=== PATIENT | female | born 1975 | race Hispanic/Latino ===

== ENCOUNTER 2018-12-04 10:48 | Emergency (ER) | payer OTHER ==
[2018-12-04 10:48] VITALS: BMI 26.4
[2018-12-04 10:52] VITALS: RESP 18; TEMP 97.9
[2018-12-04] MEDS ORDERED: methylPREDNISolone 125 MG in Sodium Chloride 0.9% 50 ML IV STA (11:37)
--- NOTE | 2018-12-04 11:39 | ED PDOC ---
HPI: General Adult Time Seen by Provider: 12/04/18 11:38 Chief Complaint (Nursing): Abnormal Skin Integrity Chief Complaint (Provider): rash History Per: Patient (43 y/o female here with rash that started last night at work. Initially noted on arms and subsequently on legs/back. Denies any new foods/medications. Denies any new mattress or sleeping over someone else's house. Did not try any medication as she is allergic to benadryl.) Past Medical History Reviewed: Historical Data, Nursing Documentation, Vital Signs Vital Signs: Last Vital Signs Temp 97.9 F 12/04/18 10:51 Pulse 82 12/04/18 10:51 Resp 18 12/04/18 10:51 BP 156/92 H 12/04/18 10:51 Pulse Ox 100 12/04/18 10:51 - Medical History PMH: Arthritis (rheumatoid), Rheumatoid Arthritis, Seizures (epilepsy) Denies: Depression, Chronic Kidney Disease - Surgical History Surgical History: Cholecystectomy - Family History Family History: States: No Known Family Hx - Immunization History Hx Tetanus Toxoid Vaccination: No Hx Influenza Vaccination: No Hx Pneumococcal Vaccination: No - Home Medications Home Medications: Ambulatory Orders Medication Instructions Recorded Topiramate [Topamax] 200 mg PO BID 07/19/15 Cyclobenzaprine [Cyclobenzaprine 5 mg PO Q8 #15 tab 12/09/17 HCl] Naproxen [Naprosyn] 500 mg PO BID #14 tab 12/09/17 Famotidine [Pepcid] 20 mg PO BID #10 tab 12/04/18 RX: predniSONE [predniSONE Tab] 3 tab PO DAILY #12 tab 12/04/18 - Allergies Allergies/Adverse Reactions: Allergies Allergy/AdvReac Type Severity Reaction Status Date / Time diphenhydramine Allergy ANAPHYLAXIS Verified 10/10/17 20:28 Sulfa (Sulfonamide Allergy ANAPHYLAXIS Verified 10/10/17 20:28 Antibiotics) Review of Systems ROS Statement: Except As Marked, All Systems Reviewed And Found Negative Physical Exam - Reviewed Nursing Documentation Reviewed: Yes Vital Signs Reviewed: Yes - Physical Exam Appears: Positive for: Well, Non-toxic, No Acute Distress Head Exam: Positive for: ATRAUMATIC, NORMAL INSPECTION, NORMOCEPHALIC Skin: Positive for: Normal Color, Warm, Rash Eye Exam: Positive for: EOMI, Normal appearance, PERRL ENT: Positive for: Normal ENT Inspection Neck: Positive for: Normal, Painless ROM Cardiovascular/Chest: Positive for: Regular Rate, Rhythm Respiratory: Positive for: CNT, Normal Breath Sounds Gastrointestinal/Abdominal: Positive for: Normal Exam, Soft Back: Positive for: Normal Inspection Extremity: Positive for: Normal ROM Neurologic/Psych: Positive for: Alert, Oriented - Laboratory Results Result Diagrams: 12/04/18 12:30 12/04/18 12:30 - ECG O2 Sat by Pulse Oximetry: 100 - Progress ED Course And Treament: solumedrol 125 mg iv x 1 dose pepcid 20 mg iv x 1 dose ns 1 liter 500 ml per hour patient feels improved but notes persistent rash on legs/arms. Advised f/u with dermatology and pmd. Disposition - Clinical Impression Clinical Impression: Rash and nonspecific skin eruption - Patient ED Disposition Is Patient to be Admitted: No - Disposition Referrals: Cuco Paz MD [Staff Provider] - Disposition: Routine/Home Disposition Time: 14:05 Condition: FAIR Additional Instructions: DR. FRANK[facility] [phone] Prescriptions: Famotidine [Pepcid] 20 mg PO BID #10 tab RX: predniSONE [predniSONE Tab] 3 tab PO DAILY #12 tab Instructions: Skin Rash (DC)
[2018-12-04] MEDS: Sodium Chloride 0.9% 1,000 ML IV STA (12:27)
[2018-12-04 12:55] LABS: INR 1.1; PROTHROMBIN TIME 12.3 Seconds (9.8-13.1)
[2018-12-04 12:58] LABS: BASO % 0.1 % (0.0-2.0); EOS # 0.1 K/uL (0.0-0.7); EOS % 1.2 % (0.0-4.0); HEMOGLOBIN 12.7 g/dL (12.0-16.0); LYMPH # 1.5 K/uL (1.0-4.3); LYMPH % 26.7 % (20.0-40.0); MEAN CELL VOLUME 88.6 fl (81.0-99.0); MEAN CORPUSCULAR HEMOGLOBIN 29.5 pg (27.0-31.0); MEAN CORPUSCULAR HGB CONC 33.3 g/dL (33.0-37.0); MEAN PLATELET VOLUME 7.3 fl (7.2-11.7); MONO # 0.4 K/uL (0.0-0.8); MONO % 6.9 % (0.0-10.0); NEUT # 3.6 K/uL (1.8-7.0); NEUT % 65.1 % (50.0-75.0); NRBC % 0.2 % (0.0-0.0); PARTIAL THROMBOPLASTIN TIME 38.8 Seconds (25.6-37.1); RBC 4.32 Mil/uL (3.80-5.20); RED CELL DISTRIBUTION WIDTH 13.2 % (11.5-14.5); WHITE BLOOD COUNT 5.5 K/uL (4.8-10.8)
[2018-12-04 13:01] LABS: ALBUMIN 4.2 g/dL (3.5-5.0); ALT/SGPT 17 U/L (9-52); AST/SGOT 27 U/L (14-36); BLOOD UREA NITROGEN 10 mg/dl (7-17); CALCIUM 9.8 mg/dL (8.4-10.2); GFR NON-AFRICAN AMERICAN > 60
[2018-12-04 14:39] VITALS: BP 125/88; PULSE 67
[2018-12-04 19:08] VITALS: O2SAT 100
== END 2018-12-04 14:50 | disposition home or self-care (01) ==
LOC: H.ER 10:48
DX: R21 Rash and other nonspecific skin eruption (principal)
CPT/HCPCS: 80053; 81025; 85025; 85610; 85730; 96361; 96374; 96375; 99283; J2930; J7030